=== PATIENT | male | born 1960 | race Caucasian/White ===

== ENCOUNTER 2017-07-11 10:27 | Emergency (ER) | payer SELFPAY ==
[~2017-07-11] VITALS: Ht 177.8 cm; Wt 79.5 kg
[~2017-07-11 10:27] MED LIST: LISI-360 PO
[2017-07-11 11:41] VITALS: BP 129/70; PULSE 72; RESP 14; TEMP 97.8; O2SAT 99
[2017-07-11] MEDS ORDERED: predniSONE 20 MG TAB PO ONE (12:15)
--- NOTE | 2017-07-11 12:17 | PD ---
HPI . Lower back pain Chief Complaint: Lower back pain Time Seen by Provider: 12:04 Travel History International Travel<30 days: No Contact w/Intl Traveler<30days: No Traveled to known affect area: No History of Present Illness HPI Pt is a 57yo male who presents to the ED with lower back pain radiating down his L leg x 3 weeks. Pt describes the pain as "constant and achy" and 3/10 at baseline, and 9/10 with spasm or movement. Pt complains of sharp pain with movement that radiates down his L thigh/hip to his knee. Pt reports no other loss of sensation or pain. Pt states that he has visited chiropractor and massage therapy and taken OTC Aleve, but has only had minimal relief of symptoms. Pt also states that sitting upright relieves his pain. 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 PFSH Past Medical History Cardiovascular Problems: Yes (HTN, doesn't take meds regularly) Social History Alcohol Use: Yes (+ETOH) Tobacco Use: Yes (1 PPD) Substance Use: No Allergies-Medications (Allergen,Severity, Reaction): Uncoded Allergies: CHANTIX (Allergy, Severe, Dizziness, 05/15/12) Reported Meds & Prescriptions Reported Meds & Active Scripts Active Flexeril (Cyclobenzaprine HCl) 10 Mg Tab 10 Mg PO TID Bruin (Hydrocodone-Acetaminophen) 5 Mg-325 Mg Tab 1 Tab PO Q4H PRN Prednisone (48) 10 mg tab Dose Pack (Prednisone) 10 Mg Dspk 10 Mg PO DIRECTED Lisinopril 10 mg (Lisinopril) 10 Mg Tab 1 Tab PO DAILY 30 Days Review of Systems Except as stated in HPI: all other systems reviewed are Neg General / Constitutional: No: Fever, Chills, Weight Gain, Weight Loss, Other Eyes: No: Diploplia, Blurred Vision, Photophobia, Drainage, Redness, Foreign Body Sensation, Pain, Tearing, Blind Spots, Visual changes, Blindness, Other HENT: No: Headaches, Vertigo, Lightheadedness, Sore Throat, Rhinitis, Rhinorrhea, Congestion, Nosebleed, Neck Stiffness, Neck Pain, Masses, Gingival Bleeding, Dental Difficulties, Ear Discharge, Earache, Other Cardiovascular: No: Chest Pain or Discomfort, Palpitations, Irregular Rhythm, Tachycardia, Diaphoresis, Syncope, Dyspnea on exertion, Varicosities, Edema, Cyanosis, Varicosities, Phlebitis, Claudication, Other Respiratory: No: Cough, Shortness of Breath, Wheezing, Sneezing, Orthopnea, Hemoptysis, Stridor, Night Sweats, Pleuritic Pain, Other Gastrointestinal: No: Nausea, Vomiting, Diarrhea, Abdominal Pain, Hematemesis, Hematochezia, Constipation, Changes in Bowel Habits, Indigestion, Dysphagia, Loss of Appetite, Other Genitourinary: No: Urgency, Frequency, Dysuria, Nocturia, Hematuria, Decreased Urinary Output, Oliguria, Hesitancy, Dribbling, Incontinence, Pelvic Pain, Flank Pain, Dyspareunia, Discharge, Dysmenorrhea, Menorrhagia, Metorrhagia, Vaginal Bleeding, Other Musculoskeletal: Positive: Myalgias, Weakness, Pain Skin: No Rash, No Itching, No Dryness, No Lumps, No Hives, No Change in Pigmentation, No Change in nails, No Alopecia, No Lesions, No Breast Lumps, No Breast Tenderness, No Breast Swelling, No Other Neurologic: Positive: Weakness, Paresthesia (pain radiating down L leg), No: Incontinence Psychiatric: No: Anxiety, Depression, Suicidal Ideations, Disorder of Thought, Mood Disorder, Substance Abuse, Homicidal Ideation, Other Endocrine: No: Heat Intolerance, Cold Intolerance, Polyuria, Polydipsia, Other Hematologic/Lymphatic: No: Easy Bruising, Lymph Node Enlargement, Other Physical Exam Narrative GENERAL: alert and oriented and in NAD HEAD: atraumatic, normocephalic. NECK: supple. no lymphadenopathy. full range of motion. SKIN: warm, dry, no tinting or cyanosis. ABDOMEN: normoactive bowel sounds. soft, nontender, nondistended. no rebound. CV: RRR no rubs, gallops, or murmurs. RESPIRATORY: CTA bilat. no rales, wheezes, or rhonchi. PSYCH: appropriate mood and affect. MUSCULOSKELETAL: Tender to deep palpation of L lumbar region. pain elicited with ROM of L hip. prolonged standing exacerbates pain. NEURO: CN II-XII intact. no focal findings. pain and weakness noted in L hip by comparison to R. Data Data Last Documented VS Vital Signs Date Time Temp Pulse Resp B/P (MAP) Pulse Ox O2 Delivery O2 Flow Rate FiO2 07/11/17 14:18 07/11/17 11:41 97.8 [address] Lumb Spine W/O Contrast (07/11/17 12:04) Prednisone (Deltasone) (07/11/17 12:15) Ed Discharge Order (07/11/17 14:21) MDM Medical Decision Making Medical Screen Exam Complete: Yes Emergency Medical Condition: Yes Differential Diagnosis lumbar muscle strain vs. lumbar radiculopathy vs. sciatica Narrative Course Patient be given a dose of oral steroids. A CT of his L-spine has been ordered. Last Impressions Lumbar Spine CT 07/11/17 1204 Signed Impressions: Service Date/Time: Sunday, July 11, 2017 12:54 - CONCLUSION: 1. Left posterior lateral disc bulge at L3-L4 abutting the left L3 nerve root within the neural foramen. 2. No acute abnormality. Chucho Kincaid Jr., MD The patient will be treated with steroids and referred to neurosurgery. Diagnosis Primary Impression: Lumbar radiculopathy Patient Instructions: General Instructions, Lumbar Radiculopathy (ED) Med/Other Pt SpecificInfo: Prescription(s) given Scripts Cyclobenzaprine (Flexeril) 10 Mg Tab 10 MG PO TID for Muscle Spasm, #30 TAB 0 Refills Prov: Lilia Gautam MD 07/11/17 Hydrocodone-Acetaminophen (Bruin) 5 Mg-325 Mg Tab 1 TAB PO Q4H Y for PAIN, #12 TAB 0 Refills Prov: Lilia Gautam MD 07/11/17 Prednisone (48) 10 mg tab Dose Pack (Prednisone (48) 10 mg tab Dose Pack) 10 Mg Dspk 10 MG PO DIRECTED for Inflammation, #1 DSPK 0 Refills Prov: Lilia Gautam MD 07/11/17 Lilia Gautam MD Jul 11, 2017 12:17
--- NOTE | 2017-07-11 13:25 | RADRPT ---
EXAM DATE/TIME: 07/11/2017 12:54 [facility] COMPARISON: No previous studies available for comparison. INDICATIONS : Low back pain, no trauma RADIATION DOSE: 35.86 CTDIvol (mGy) MEDICAL HISTORY : None SURGICAL HISTORY : None. ENCOUNTER: Initial ACUITY: 1 day PAIN SCALE: 6/10 LOCATION: Low back TECHNIQUE: Volumetric scanning of the lumbar spine was performed. Multiplanar reconstructions in the sagittal, coronal and oblique axial planes were performed. Using automated exposure control and adjustment of the mA and/or kV according to patient size, radiation dose was kept as low as reasonably achievable t o obtain optimal diagnostic quality images. DICOM format image data is available electronically for review and comparison. FINDINGS: VERTEBRAE: Normal vertebral body height. ALIGNMENT: No evidence of subluxation. T12-L1: The thecal sac has a normal diameter. No evidence of disc bulge or protrusion. The neural foramina are patent bilaterally. L1-L2: The thecal sac has a normal diameter. No evidence of disc bulge or protrusion. The neural foramina are patent bilaterally. L2-L3: The thecal sac has a normal diameter. No evidence of disc bulge or protrusion. The neural foramina are patent bilaterally. There is a smoothly corticated ossification adjacent to the left transverse p rocess likely related to remote trauma or an unfused secondary ossification center. This is not consi stent with acute trauma. L3-L4: There is a broad-based disc bulge towards the left posterior lateral aspect which abuts the left L3 n erve root within the neural foramen. The right neural foramen and central canal are patent. Facet blaise nts are unremarkable. L4-L5: There is a mild broad-based disc bulge. Lateral recesses, central canal, and neural foramen are paten t. L5-S1: There is a mild broad-based disc bulge. Lateral recesses, central canal, and neural foramen are paten t. CONCLUSION: 1. Left posterior lateral disc bulge at L3-L4 abutting the left L3 nerve root within the neural xander en. 2. No acute abnormality. Chucho Kincaid Jr., MD on July 11, 2017 at 13:19 Board Certified Radiologist. This report was verified electronically.
[2017-07-11] MEDS ORDERED: NORC5TAB PO ×2 (14:14→14:16)
[2017-07-11] MEDS ORDERED: PRED10PA2 PO ×2 (14:14→14:16)
[2017-07-11] MEDS ORDERED: CYCL10TA PO ×2 (14:14→14:16)
== END 2017-07-11 14:30 | disposition home or self-care (01) ==
LOC: NETRI 10:27
DX: M54.16 Radiculopathy, lumbar region (principal); I10 Essential (primary) hypertension; F17.210 Nicotine dependence, cigarettes, uncomplicated
CPT/HCPCS: 72131; 99284; J7512

== ENCOUNTER 2017-07-13 17:12 | Emergency (ER) | payer SELFPAY ==
[~2017-07-13] VITALS: Ht 182.9 cm; Wt 90.0 kg
[~2017-07-13 17:12] MED LIST changes: +CYCL10TA PO; +NORC5TAB PO; +PRED10PA2 PO
[2017-07-13 17:14] VITALS: BP 141/78; PULSE 87; RESP 13; TEMP 98.7; O2SAT 100
--- NOTE | 2017-07-13 18:05 | PD ---
HPI Chief Complaint: Allergic/Adverse Reaction Time Seen by Provider: 18:04 Travel History International Travel<30 days: No Contact w/Intl Traveler<30days: No Traveled to known affect area: No History of Present Illness HPI 57 year old male presents to the emergency department complaining of a history of a "throat tightness" this morning. States that he was in the emergency department Sunday for low back pain and received prednisone for this condition. States his back pain has improved significantly however, he is concerned about the condition or he developed this morning. Patient denies shortness of breath, chest pain, rash or any other complaints. Patient denies any recent travel, new foods, or soaps or lotions. PFSH Past Medical History Cardiovascular Problems: Yes (HTN, doesn't take meds regularly) Social History Alcohol Use: Yes (+ETOH) Tobacco Use: Yes (1 PPD) Substance Use: No Allergies-Medications (Allergen,Severity, Reaction): Uncoded Allergies: CHANTIX (Allergy, Severe, Dizziness, 05/15/12) Reported Meds & Prescriptions Reported Meds & Active Scripts Active Magic Mouthwash Adult Liq (Multi-Ingredient Mouthwash/Gargle) 120 Ml Susp 5 Ml SWISH-SWAL ACHS 10 Days Each 5mL contains: Nystatin 200,000units, Diphenhydramine 4.25mg, Viscous Lidocaine 10mg, Coyne syrup 0.8 mL Flexeril (Cyclobenzaprine HCl) 10 Mg Tab 10 Mg PO TID Sherman (Hydrocodone-Acetaminophen) 5 Mg-325 Mg Tab 1 Tab PO Q4H PRN Prednisone (48) 10 mg tab Dose Pack (Prednisone) 10 Mg Dspk 10 Mg PO DIRECTED Lisinopril 10 mg (Lisinopril) 10 Mg Tab 1 Tab PO DAILY 30 Days Review of Systems Except as stated in HPI: all other systems reviewed are Neg Physical Exam Narrative GENERAL: Well-nourished, well-developed patient. SKIN: Focused skin assessment warm/dry. HEAD: Normocephalic. EYES: No scleral icterus. No injection or drainage. Mouth- corner of left side of mouth with a white plaque, tongue diffusely covered with white plaques, extends beyond my visual range within the pharynx. NECK: Supple, trachea midline. No JVD or lymphadenopathy. CARDIOVASCULAR: Regular rate and rhythm without murmurs, gallops, or rubs. RESPIRATORY: Breath sounds equal bilaterally. No accessory muscle use. No wheezing GASTROINTESTINAL: Abdomen soft, non-tender, nondistended. MUSCULOSKELETAL: No cyanosis, or edema. BACK: Nontender without obvious deformity. No CVA tenderness. Data Data Last Documented VS Vital Signs Date Time Temp Pulse Resp B/P (MAP) Pulse Ox O2 Delivery O2 Flow Rate FiO2 07/13/17 17:14 98.7 87 13 141/78 (99) 100 MDM Medical Decision Making Medical Screen Exam Complete: Yes Emergency Medical Condition: Yes Differential Diagnosis Allergic reaction versus anaphylaxis versus adverse reaction Narrative Course 57 year old male presents to the emergency department complaining of a history of a "throat tightness" this morning. Also states that he has had increased reflux the last couple of days. States that he was in the emergency department Sunday for low back pain and received prednisone for this condition. States his back pain has improved significantly however, he is concerned about the condition or he developed this morning. Patient denies shortness of breath, chest pain, rash or any other complaints. Patient denies any recent travel, new foods, or soaps or lotions. Currently patient has no complaints of chest or throat tightness. Physical exam demonstrates a nontoxic not anxious appearing male. Upon exam, patient had diffusely white plaques of his tongue and the corner of his mouth. After discussion of physical exam findings patient admitted that he has had this condition for a while. Patient has taken prednisone for likely has reduced his immunity, resulting in the oral candidiasis exacerbation. This may be the cause for his sensation that he had earlier. Magic mouthwash. Skip 2 days of prednisone. May restart one to 2 tablets a day to determine tolerability. Patient to follow up with primary care physician within 2 days Diagnosis Primary Impression: Oral candidiasis Additional Impression: Adverse drug experience Qualified Codes: T88.7XXA - Unspecified adverse effect of drug or medicament, initial encounter Referrals: Primary Care Physician Additional Instructions: Use mouth rinse as prescribed As discussed, may use less of the Medrol Dosepak he received upon discharge of the hospital from Sunday. Follow-up with her primary care physician within 2 days. If your symptoms worsen or persists return to the emergency department Scripts Bownblhk-Wydotkycntjpimm-Pplligbys Liq (Magic Mouthwash Adult Liq) 120 Ml Susp 5 ML SWISH-SWAL ACHS for Mouth sores for 10 Days, #120 ML 0 Refills Each 5mL contains: Nystatin 200,000units, Diphenhydramine 4.25mg, Viscous Lidocaine 10mg, Coyne syrup 0.8 mL Prov: NattyMeenu DO 07/13/17 Disposition: 01 DISCHARGE HOME Condition: Stable Emma Meredith Jul 13, 2017 18:05
[2017-07-13] MEDS ORDERED: MAGICADU2 SWISH-SWAL (18:20)
== END 2017-07-13 18:37 | disposition home or self-care (01) ==
LOC: NEPK 17:12
DX: B37.0 Candidal stomatitis (principal); T50.905A Adverse effect of unspecified drugs, medicaments and biological substances, initial encounter
CPT/HCPCS: 99283